=== PATIENT | female | born 1930 | race Caucasian/White ===

== ENCOUNTER → 2020-08-31 | Outpatient (CLI) | payer MEDICARE ==
--- NOTE | 2020-08-31 15:36 | Diagnostic Imaging Report ---
INDICATION: Left knee pain and swelling. Decreased range of motion. COMPARISON: None FINDINGS: 3 radiographic views of the left knee were obtained and show no acute fracture or dislocation. There are advanced osteoarthritic changes consisting of tricompartmental joint space narrowing with osteophyte formations. There is also suggestion of multiple intra-articular calcified loose bodies medially, as well as superior to the patella. Moderate joint effusion is also suspected. No unexpected radiopaque foreign bodies are seen. IMPRESSION: 1. No acute fracture or dislocation of the left knee. 2. Advanced osteoarthritic changes with probable multiple calcified intra-articular loose bodies. Dictated by: Dictated on workstation # [id number]
== END ==
LOC: RAD FS 13:28
PROVIDERS: ATTEND Nurse Practitioner
DX: M17.12 Unilateral primary osteoarthritis, left knee (principal)
CPT/HCPCS: 73562